=== PATIENT | male | born 1980 | race Caucasian/White ===

== ENCOUNTER 2024-10-16 08:46 | Emergency (ER) | payer OTHER ==
[~2024-10-16] VITALS: Ht 170.2 cm; Wt 74.8 kg
[2024-10-16 08:59] VITALS: BP 119/76; TEMP 97.8
[2024-10-16] MEDS ORDERED: NAPR-1009 PO (09:23)
[2024-10-16 09:28] VITALS: O2SAT 97
== END 2024-10-16 09:28 | disposition home or self-care (01) ==
LOC: ER 08:50
DX: B34.9 Viral infection, unspecified (principal); M79.10 Myalgia, unspecified site; R07.0 Pain in throat; R50.9 Fever, unspecified